=== PATIENT | male | born 1940 | race Caucasian/White ===

== ENCOUNTER → 2018-06-29 | Outpatient (CLI) | payer MEDICARE ==
--- NOTE | 2018-06-29 13:00 | MR ---
EXAMINATION TYPE: MR iac wo/w con DATE OF EXAM: 06/29/2018 12:20 PM COMPARISON: NONE HISTORY: Hearing loss TECHNIQUE: Multiplanar and multispin-echo imaging of the brain was performed both before and after the administr ation of contrast. High-resolution images are obtained of the internal auditory canals performed uti lizing 7.5 mL intravenous Gadavist contrast. The ventricles, basal cisterns and sulci overlying the cerebral convexities are mildly enlarged. There is no evidence for midline shift or mass effect. Acute intracranial hemorrhage or extra-axial collection is not evident. Scattered remote deep white matter insults are seen within the deep white matter of both cerebral hem ispheres. High-resolution imaging of the internal auditory canals fails demonstrate evidence for an enhancing a coustic schwannoma or cerebellopontine cistern angle mass. Following contrast administration, there is no evidence for pathologic enhancement or enhancing mass. The paranasal sinuses and mastoid air cells are well-aerated. IMPRESSION: 1. No evidence of acoustic schwannoma or cerebellopontine angle mass.
== END ==
LOC: RADMRIMAIN 10:38
PROVIDERS: ATTEND Otolaryngology
DX: H93.3X2 Disorders of left acoustic nerve (principal)
CPT/HCPCS: 82565; 70553; 36415; A9585

== ENCOUNTER → 2018-10-14 | Day surgery (SDC) | payer MEDICARE ==
[2018-10-12 15:34] VITALS: BMI 25.2
[~2018-10-14] MED LIST: LACTATED RINGERS 1,000 ML IV ONE; LACTATED RINGERS 1,000 ML IV SCH; LIDOCAINE 1% 20 ML VIAL (10MG/ML) FOR IV START INTRADERMA PRN; LIDOCAINE 1% INJ 10MG/ML (20 ML MDV) ONE; MIDAZOLAM 2 MG/2 ML VIAL ONE; PROPOFOL 10 MG/ML 20 ML VIAL IV ONE; fentaNYL (PF) 50 MCG/ML 2 ML AMP ONE
[2018-10-14 07:16] VITALS: TEMP 98.6
[2018-10-14 07:28] LABS: Glucose,Whole Blood 135 mg/dL (75-99)
[2018-10-14 08:29] VITALS: RESP 16
[2018-10-14 09:05] VITALS: BP 107/57; PULSE 56
--- NOTE | 2018-11-11 01:03 | P.PCN ---
Date of Procedure: 10/14/18 Description of Procedure: BRIEF HISTORY: Patient is a 77-year-old pleasant male scheduled for an elective colonoscopy as a part of high risk screening for malignant neoplasm of the colon with a history of colon polyps in the past. Patient denies any change in bowel habits, blood per rectum or other symptoms. PROCEDURE PERFORMED: Colonoscopy with polypectomy. PREOPERATIVE DIAGNOSIS: Personal history of colon polyps, high risk screening for malignant neoplasm of the colon. ESTIMATED BLOOD LOSS: Minimal. IV sedation per Anesthesia. PROCEDURE: After informed consent was obtained, the patient, was brought into the endoscopy unit. IV sedation was administered by Anesthesia under continuous monitoring. Digital rectal examination was normal. Initially the Olympus CF-190 flexible video colonoscope was then inserted in the rectum, gradually advanced into the cecum without any difficulty. Careful examination was performed as the scope was gradually being withdrawn. Ileocecal valve and the appendiceal orifice were visualized and appeared normal. Prep was good. Mucosa of the cecum, ascending colon, transverse colon, descending colon, sigmoid colon, and rectum appeared normal. 11 mm flat cecal polyp removed with cold snare polypectomy. Diminutive polyps in the transverse colon, descending colon and rectum measuring 3 mm removed with cold forcep polypectomy. Left-sided diverticulosis. Internal hemorrhoids. Retroflexion was performed in the rectum and no lesions were seen. The patient tolerated the procedure well. IMPRESSION: Cold snare polypectomy of cecal polyp. Cold forcep polypectomy of diminutive polyps in the rectum, descending colon and transverse colon. Diverticulosis. Internal hemorrhoids. RECOMMENDATIONS: Findings of this examination were discussed with the patient . Okay to resume high-fiber diet. Await pathology from polypectomies. Repeat colonoscopy in 3 years pending pathology, or sooner if signs or symptoms which warrant further evaluation develop.
== END ==
LOC: ORWHC2ENDO 06:51
PROVIDERS: ATTEND Internal Medicine
DX: Z12.11 Encounter for screening for malignant neoplasm of colon (principal); D12.0 Benign neoplasm of cecum; K63.5 Polyp of colon; K57.30 Diverticulosis of large intestine without perforation or abscess without bleeding; K64.8 Other hemorrhoids; Z86.010 Personal history of colon polyps; Z98.84 Bariatric surgery status; Z95.1 Presence of aortocoronary bypass graft; I25.10 Atherosclerotic heart disease of native coronary artery without angina pectoris; I10 Essential (primary) hypertension; E78.5 Hyperlipidemia, unspecified; E11.9 Type 2 diabetes mellitus without complications; E07.9 Disorder of thyroid, unspecified; Z79.84 Long term (current) use of oral hypoglycemic drugs; Z95.5 Presence of coronary angioplasty implant and graft; Z90.49 Acquired absence of other specified parts of digestive tract; Z79.82 Long term (current) use of aspirin; Z79.890 Hormone replacement therapy; Z79.891 Long term (current) use of opiate analgesic; Z79.899 Other long term (current) drug therapy; Z88.0 Allergy status to penicillin
CPT/HCPCS: 88305; 45380; 45385; J2250; J2001; J3010; J2704

== ENCOUNTER 2021-05-06 08:27 | Emergency (ER) | payer MEDICARE ==
[2021-05-06 08:32] VITALS: PULSE 62; RESP 18; TEMP 97.7
[2021-05-06] MEDS ORDERED: cloNIDine HCL 0.1 MG TAB PO STA (08:49)
--- NOTE | 2021-05-06 09:10 | ED ---
General Adult HPI - General Chief complaint: Upper Respiratory Infection Stated complaint: Covid+/High BP Time Seen by Provider: 05/06/21 08:34 Source: patient, RN notes reviewed Mode of arrival: wheelchair Limitations: no limitations - History of Present Illness Initial comments: This is a pleasant 80-year-old male with a history of hypertension, type 2 diabetes mellitus, hyperlipidemia, hypothyroidism. Patient presents to the emergency department today for hypertension. Patient actually came in for an outpatient infusion of monoclonal antibody as he tested positive for COVID-19 on April 28. Patient states he had mild symptoms of a common cold. He described runny nose, mild headache, dry cough, some body aches. Patient denies any chest pain. He is complaining some lightheadedness but no vision or hearing change. Mild headache. No neck pain. No shortness of breath other than the cough for COVID-19. No abdominal pain. No nausea or vomiting. No changes in bowel movements or urination. Patient does take losartan for hypertension. - Related Data Home Medications Medication Instructions Recorded Confirmed Aspirin EC [Ecotrin] 325 mg PO DAILY 10/12/18 10/12/18 Atorvastatin [Lipitor] 40 mg PO DAILY 10/12/18 10/14/18 Fenofibrate Nanocrystallized 145 mg PO HS 10/12/18 10/14/18 [Fenofibrate] Isosorbide Mononitrate ER [Imdur] 30 mg PO DAILY 10/12/18 10/14/18 Levothyroxine Sodium [Levoxyl] 100 mcg PO DAILY 10/12/18 10/14/18 Losartan Potassium [Cozaar] 50 mg PO DAILY 10/12/18 10/14/18 [place]-3 Fatty Acids/Fish Oil [Fish 1 each PO BID 10/12/18 10/14/18 Oil 1,000 mg Softgel] Ranitidine HCl [Zantac] 150 mg PO BID 10/12/18 10/14/18 atenoloL [Tenormin] 12.5 mg PO DAILY 10/12/18 10/14/18 glipiZIDE XL [Glucotrol Xl] 5 mg PO DAILY 10/12/18 10/14/18 metFORMIN HCL [Glucophage] 1,000 mg PO BID 10/12/18 10/14/18 sitaGLIPtin PHOSPHATE [Januvia] 100 mg PO AC-SUPPER 10/12/18 10/14/18 Previous Rx's Medication Instructions Recorded Hydrochlorothiazide 12.5 mg PO DAILY #30 capsule 05/06/21 [hydroCHLOROthiazide] Allergies Allergy/AdvReac Type Severity Reaction Status Date / Time piperacillin [From Zosyn] Allergy Rash/Hives Verified 05/06/21 08:32 tazobactam [From Zosyn] Allergy Rash/Hives Verified 05/06/21 08:32 Review of Systems ROS Statement: Those systems with pertinent positive or pertinent negative responses have been documented in the HPI. ROS Other: All systems not noted in ROS Statement are negative. Past Medical History Past Medical History: Coronary Artery Disease (CAD), Diabetes Mellitus, GERD/Reflux, Hyperlipidemia, Hypertension, Thyroid Disorder Additional Past Medical History / Comment(s): TYPE II DM. HX DIVERTICULITIS, COLON POLYPS. History of Any Multi-Drug Resistant Organisms: None Reported Past Surgical History: Bowel Resection, Heart Catheterization With Stent, Hernia Repair, Orthopedic Surgery Additional Past Surgical History / Comment(s): PTCA W/ 2 STENTS X2. RT SHOULDER/TORN BICEP TENDON 11/2017. ING HERNIA. COLONOSCOPY. OMAR CATARACTS. BOWEL RESECTION 2009 D/T DIVERTICULITIS. Past Anesthesia/Blood Transfusion Reactions: Previous Problems w/ Anesthesia Additional Past Anesthesia/Blood Transfusion Reaction / Comment(s): AWOKE DURING SURGERY. Date of Last Stent Placement:: 2008 Smoking Status: Never smoker Past Drug Use History: None Reported - Past Family History Mother Family Medical History: No Reported History General Exam - General Exam Comments Initial Comments: Elderly male in no acute distress. Appears to be nontoxic. Cranial nerves II through XII grossly intact. Limitations: no limitations General appearance: alert, in no apparent distress Head exam: Present: atraumatic, normocephalic, normal inspection Eye exam: Present: normal appearance, PERRL, EOMI. Absent: scleral icterus, conjunctival injection, periorbital swelling ENT exam: Present: normal exam, mucous membranes moist Neck exam: Present: normal inspection. Absent: tenderness, meningismus, lymphadenopathy Respiratory exam: Present: normal lung sounds bilaterally. Absent: respiratory distress, wheezes, rales, rhonchi, stridor Cardiovascular Exam: Present: regular rate, normal rhythm, normal heart sounds. Absent: systolic murmur, diastolic murmur, rubs, gallop, clicks GI/Abdominal exam: Present: soft, normal bowel sounds. Absent: distended, tenderness, guarding, rebound, rigid Extremities exam: Present: normal inspection, full ROM, normal capillary refill. Absent: tenderness, pedal edema, joint swelling, calf tenderness Back exam: Present: normal inspection Neurological exam: Present: alert, oriented X3, CN II-XII intact. Absent: normal gait, motor sensory deficit Psychiatric exam: Present: normal affect, normal mood. Absent: anxious, flat affect Skin exam: Present: warm, dry, intact, normal color. Absent: rash, cyanosis, diaphoretic, petechiae Course Vital Signs 05/06/21 05/06/21 05/06/21 08:28 09:34 10:45 Temperature 97.7 F Pulse Rate 62 62 Respiratory 18 18 Rate Blood Pressure 214/81 207/91 189/81 O2 Sat by Pulse 100 97 Oximetry - Reevaluation(s) Reevaluation #1: 05/06/21 11:05 Patient reevaluated and is resting comfortably in his room. No distress. Currently receiving the monoclonal antibody. Medical Decision Making - Medical Decision Making We'll order basic labs to include troponin and EKG. We'll give the patient clonidine 0.1 mg by mouth for hypertension. Plan for reevaluation, will infuse the patient's monoclonal antibody. Patient's blood pressure down to a reasonable level at 189/81. I did give the patient a dose of hydrochlorothiazide. Will add that to his metoprolol and losartan. Patient to call today to his primary care physician for follow-up regarding hypertension. The case was discussed in detail with ED attending physician. Presentation, findings, treatment plan discussed in detail. Patient was told to return to the ER for any signs or symptoms worsen. Told to return immediately if any other problems arise. All questions answered. Treatment plan discussed. Patient in agreement Discussed COVID-19 quarantine measures. Chest x-ray was clear. - Lab Data Result diagrams: 05/06/21 08:54 05/06/21 08:54 Lab Results 05/06/21 05/06/21 05/06/21 Range/Units 08:54 08:54 08:54 WBC 9.4 (3.8-10.6) k/uL RBC 5.36 (4.30-5.90) m/uL Hgb 14.3 (13.0-17.5) gm/dL Hct 45.7 (39.0-53.0) % MCV 85.3 (80.0-100.0) fL MCH 26.6 (25.0-35.0) pg MCHC 31.2 (31.0-37.0) g/dL RDW 14.2 (11.5-15.5) % Plt Count 341 (150-450) k/uL MPV 7.8 Neutrophils % 75 % Lymphocytes % 16 % Monocytes % 5 % Eosinophils % 2 % Basophils % 0 % Neutrophils # 7.1 (1.3-7.7) k/uL Lymphocytes # 1.5 (1.0-4.8) k/uL Monocytes # 0.5 (0-1.0) k/uL Eosinophils # 0.2 (0-0.7) k/uL Basophils # 0.0 (0-0.2) k/uL Sodium 138 (137-145) mmol/L Potassium 4.3 (3.5-5.1) mmol/L Chloride 106 (98-107) mmol/L Carbon Dioxide 23 (22-30) mmol/L Anion Gap 9 mmol/L BUN 17 (9-20) mg/dL Creatinine 0.82 (0.66-1.25) mg/dL Est GFR (CKD-EPI)AfAm >90 (>60 ml/min/1.73 sqM) Est GFR (CKD-EPI)NonAf 85 (>60 ml/min/1.73 sqM) Glucose 210 H (74-99) mg/dL Calcium 9.7 (8.4-10.2) mg/dL Magnesium 1.7 (1.6-2.3) mg/dL Total Bilirubin 0.5 (0.2-1.3) mg/dL AST 31 (17-59) U/L ALT 25 (4-49) U/L Alkaline Phosphatase 40 (38-126) U/L Troponin I <0.012 (0.000-0.034) ng/mL NT-Pro-B Natriuret Pep pg/mL Total Protein 7.5 (6.3-8.2) g/dL Albumin 4.2 (3.5-5.0) g/dL Coronavirus (PCR) (Not Detectd) 05/06/21 05/06/21 Range/Units 08:54 09:51 WBC (3.8-10.6) k/uL RBC (4.30-5.90) m/uL Hgb (13.0-17.5) gm/dL Hct (39.0-53.0) % MCV (80.0-100.0) fL MCH (25.0-35.0) pg MCHC (31.0-37.0) g/dL RDW (11.5-15.5) % Plt Count (150-450) k/uL MPV Neutrophils % % Lymphocytes % % Monocytes % % Eosinophils % % Basophils % % Neutrophils # (1.3-7.7) k/uL Lymphocytes # (1.0-4.8) k/uL Monocytes # (0-1.0) k/uL Eosinophils # (0-0.7) k/uL Basophils # (0-0.2) k/uL Sodium (137-145) mmol/L Potassium (3.5-5.1) mmol/L Chloride (98-107) mmol/L Carbon Dioxide (22-30) mmol/L Anion Gap mmol/L BUN (9-20) mg/dL Creatinine (0.66-1.25) mg/dL Est GFR (CKD-EPI)AfAm (>60 ml/min/1.73 sqM) Est GFR (CKD-EPI)NonAf (>60 ml/min/1.73 sqM) Glucose (74-99) mg/dL Calcium (8.4-10.2) mg/dL Magnesium (1.6-2.3) mg/dL Total Bilirubin (0.2-1.3) mg/dL AST (17-59) U/L ALT (4-49) U/L Alkaline Phosphatase (38-126) U/L Troponin I (0.000-0.034) ng/mL NT-Pro-B Natriuret Pep 186 pg/mL Total Protein (6.3-8.2) g/dL Albumin (3.5-5.0) g/dL Coronavirus (PCR) Detected A (Not Detectd) 05/06/21 09:09 EKG done at 841, the attending physician reveals normal sinus rhythm with rate of 63. Nonspecific ST and [place]. Baseline artifact. Left axis aviation, mild. Normal intervals. No evidence of ST elevation. Disposition Clinical Impression: COVID-19, Hypertension, poor control Disposition: HOME SELF-CARE Condition: Good Instructions (If sedation given, give patient instructions): Coronavirus Disease 2019 (COVID-19), Hypertension (ED) Additional Instructions: SELF QUARANTINE DISCHARGE: Please maintain social distance of 6 feet if possible. You should not return to work until at least 3 days (72 hours) have passed since recovery of symptoms. This defined as resolution of fever without the use of fever reducing medicines and improvement in respiratory symptoms (e.g,, cough, shortness of breath) Isolation can end at least 5 days after symptom onset and after fever ends for 24 hours (without the use of fever-reducing medication) and symptoms are improving, if these people can continue to properly wear a well-fitted mask around others for 5 more days after the 5-day isolation period. If you're still having symptoms at the end of 5 day period, isolate for an additional 5 days. More information about what to do if you are sick can be found on the CDC website at https://www.cdc.gov/coronavirus/2019-ncov/af-xlq-dmq-sick/steps-when- sick.html Expect the symptoms to last for 7-14 days from onset. Use acetaminophen (Tylenol) as needed for discomfort. You can take a maximum of 1 gram every 6 hours for discomfort, with your total dose in 24 hours not exceeding 4 grams. Be sure to maintain hydration. Drink continuous water and/or items high in vitamin C, such as orange juice and/or lemonade. For a cough you may take Mucinex or Robitussin. Also consider the use of Vicks Vapor Rub or your chest when you sleep. Use a humidifier that is cleaned frequently, in the bedroom at night. For Nausea /Vomiting/Diarrhea associated with your Illness: o Small frequent sips of room temperature liquids. o Diet: [place] Foods - If you are still experiencing discomfort and/or nausea please slowly advancing your diet using the BRAT Diet = bananas, rice, apples/apple sauce, toast. o With diarrhea avoid any dairy for 48 hours after symptoms resolved. o Continue with activity as tolerated. If your symptoms do get worse and you believe that the upper respiratory infection has developed into something else, such as pneumonia or severe dehydration, please return to the emergency department or follow-up with your primary care. But expect to be symptomatic for the days as indicated above Follow-up with your regular physician as directed. Return to the ER immediately if any symptoms worsen, new symptoms arise, or any other problems develop. Call today to set up a follow-up appointment with your regular doctor for blood pressure monitoring. Make sure the Mucinex you're taking does not have pseudoephedrine in it. Prescriptions: Hydrochlorothiazide [hydroCHLOROthiazide] 12.5 mg PO DAILY #30 capsule Is patient prescribed a controlled substance at d/c from ED?: No Referrals: Samantha Medrano MD [Primary Care Provider] - 05/06/21 Time of Disposition: 11:08
[2021-05-06 09:13] LABS: Basophils % (A) 0 %; Eosinophils # (A) 0.2 k/uL (0-0.7); Eosinophils % (A) 2 %; HCT 45.7 % (39.0-53.0); HGB 14.3 gm/dL (13.0-17.5); Lymphocytes # (A) 1.5 k/uL (1.0-4.8); Lymphocytes % (A) 16 %; MCH 26.6 pg (25.0-35.0); MCHC 31.2 g/dL (31.0-37.0); MCV 85.3 fL (80.0-100.0); Mean Platelet Volume 7.8; Monocytes # (A) 0.5 k/uL (0-1.0); Monocytes % (A) 5 %; Neutrophils # (A) 7.1 k/uL (1.3-7.7); Neutrophils % (A) 75 %; Platelet Count 341 k/uL (150-450); RBC 5.36 m/uL (4.30-5.90); RDW 14.2 % (11.5-15.5); WBC 9.4 k/uL (3.8-10.6)
[2021-05-06 09:24] LABS: ALT 25 U/L (4-49); AST 31 U/L (17-59); African American GFR (CKD) >90 (>60 ml/min/1.73 sqM); Albumin 4.2 g/dL (3.5-5.0); Alkaline Phosphatase 40 U/L (38-126); Anion Gap 9 mmol/L; Blood Urea Nitrogen 17 mg/dL (9-20); Calcium 9.7 mg/dL (8.4-10.2); Carbon Dioxide 23 mmol/L (22-30); Chloride 106 mmol/L (98-107); Glucose 210 mg/dL (74-99); Magnesium 1.7 mg/dL (1.6-2.3); Non-African American GFR(CKD) 85 (>60 ml/min/1.73 sqM); Potassium 4.3 mmol/L (3.5-5.1); Sodium 138 mmol/L (137-145); Total Bilirubin 0.5 mg/dL (0.2-1.3); Total Protein 7.5 g/dL (6.3-8.2)
--- NOTE | 2021-05-06 10:23 | XR ---
EXAMINATION TYPE: XR chest 1V portable DATE OF EXAM: 05/06/2021 COMPARISON: Chest x-ray 08/13/2009 HISTORY: Chest pain, Covid positive, shortness of breath TECHNIQUE: Single frontal view of the chest is obtained. FINDINGS: There is no focal air space opacity, pleural effusion, or pneumothorax seen. Linear scarri ng at the level of the lingula or left lung base is stable. Patient is post median sternotomy and lef t atrial appendage clip placement. 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 The aorta is de nse. There are overlying artifacts. The cardiac silhouette size is within normal limits. The osseou s structures are intact. IMPRESSION: No acute process, postop changes are noted.
[2021-05-06] MEDS ORDERED: hydroCHLOROthiazide 12.5 MG CAP PO STA (10:35)
[2021-05-06] MEDS ORDERED: BAMLANIVIMAB (EUA) 700 MG, ETESEVIMAB (EUA) 1,400 MG in SODIUM CHLORIDE 0.9% 100 ML IVPB ONE (10:45)
[2021-05-06] MEDS ORDERED: SODIUM CHLORIDE 0.9% 50 ML IVPB ONE (10:45)
[2021-05-06 11:19] VITALS: BP 167/78
== END 2021-05-06 12:15 | disposition home or self-care (01) ==
LOC: EC 08:27
DX: U07.1 COVID-19 (principal); I10 Essential (primary) hypertension; E78.5 Hyperlipidemia, unspecified; E07.9 Disorder of thyroid, unspecified; Z88.0 Allergy status to penicillin; Z88.8 Allergy status to other drugs, medicaments and biological substances; Z79.899 Other long term (current) drug therapy; Z79.82 Long term (current) use of aspirin; Z79.890 Hormone replacement therapy; Z79.84 Long term (current) use of oral hypoglycemic drugs
CPT/HCPCS: 36415; 83880; 80053; 83735; 84484; 85025; 87635; 71045; 99284; J3490

== ENCOUNTER → 2021-05-06 | Outpatient (CLI) | payer MEDICARE ==
[~2021-05-06] MED LIST changes: +BAMLANIVIMAB (EUA) 700 MG, ETESEVIMAB (EUA) 1,400 MG in SODIUM CHLORIDE 0.9% 100 ML IVPB NR; -LACTATED RINGERS 1,000 ML IV ONE; -LACTATED RINGERS 1,000 ML IV SCH; -LIDOCAINE 1% 20 ML VIAL (10MG/ML) FOR IV START INTRADERMA PRN; -LIDOCAINE 1% INJ 10MG/ML (20 ML MDV) ONE; -MIDAZOLAM 2 MG/2 ML VIAL ONE; -PROPOFOL 10 MG/ML 20 ML VIAL IV ONE; +SODIUM CHLORIDE 0.9% 50 ML IVPB NR; -fentaNYL (PF) 50 MCG/ML 2 ML AMP ONE
[2021-05-06 08:33] VITALS: BP 228/94
== END | disposition home or self-care (01) ==
LOC: PROCWHC3 07:57
PROVIDERS: ATTEND Family Medicine
DX: Z53.9 Procedure and treatment not carried out, unspecified reason (principal)